=== PATIENT | male | born 1995 | race Caucasian/White ===

== ENCOUNTER 2020-05-17 22:21 | Emergency (ER) | payer OTHER ==
[2020-05-17] MEDS ORDERED: ALBUTEROL SO4 HFA INHALER IH ONE (22:24)
[2020-05-17] MEDS ORDERED: DEXAMETHASONE SOD PHOSPHATE 10 MG/1 ML VIAL IM ONE (22:24)
[2020-05-17 22:36] VITALS: BP 124/81; PULSE 110; TEMP 98.6; BMI 25.1
== END 2020-05-17 23:38 | disposition home or self-care (01) ==
LOC: JER 22:21
PROC: 3E023GC Introduction of Other Therapeutic Substance into Muscle, Percutaneous Approach (ICD-10-PCS; principal; 2020-05-17)
DX: J70.5 Respiratory conditions due to smoke inhalation (principal); R06.02 Shortness of breath
CPT/HCPCS: 99284-25; J1100